=== PATIENT | male | born 1995 | race Caucasian/White ===

== ENCOUNTER 2020-02-13 13:30 | Emergency (ER) | payer MEDICAID ==
[~2020-02-13] VITALS: Ht 175.3 cm; Wt 71.0 kg
[2020-02-13] MEDS ORDERED: IBUP-1985 PO (14:37)
[2020-02-13 14:48] VITALS: BP 103/48
== END 2020-02-13 14:49 | disposition home or self-care (01) ==
LOC: ER 13:31
DX: S69.81XA Other specified injuries of right wrist, hand and finger(s), initial encounter (principal); W01.0XXA Fall on same level from slipping, tripping and stumbling without subsequent striking against object, initial encounter; Y93.67 Activity, basketball; Y92.89 Other specified places as the place of occurrence of the external cause; Y99.8 Other external cause status
CPT/HCPCS: 29125; 73090; 73110; 73130; 99284

== ENCOUNTER → 2020-03-02 | Emergency (ER) | payer MEDICAID ==
[~2020-03-02] VITALS: Ht 172.7 cm; Wt 72.7 kg
[~2020-03-02] MED LIST: IBUP-1985 PO; ketorolac trometh inj. 60 MG/2 ML VIAL IM ONE
[2020-03-02 20:25] VITALS: BP 112/63
== END | disposition home or self-care (01) ==
LOC: ER 20:22
DX: S96.911A Strain of unspecified muscle and tendon at ankle and foot level, right foot, initial encounter (principal); S86.811A Strain of other muscle(s) and tendon(s) at lower leg level, right leg, initial encounter; X50.1XXA Overexertion from prolonged static or awkward postures, initial encounter; Y93.67 Activity, basketball; Y92.89 Other specified places as the place of occurrence of the external cause; Y99.8 Other external cause status
CPT/HCPCS: 73564; 73630; 96372; 99284; J1885

== ENCOUNTER 2020-04-01 15:05 | Emergency (ER) | payer MEDICAID ==
[~2020-04-01] VITALS: Ht 175.3 cm; Wt 69.7 kg
[~2020-04-01 15:05] MED LIST changes: -ketorolac trometh inj. 60 MG/2 ML VIAL IM ONE
[2020-04-01 15:27] LABS: CLARITY,URINE CLOUDY (Clear); COLOR,URINE YELLOW (Yellow); GLUCOSE, URINE NEGATIVE (Neg); KETONES,URINE TRACE mg/dl (Neg); LEUKOCYTE ESTERASE ,URINE NEGATIVE (Neg); NITRITES, URINE NEGATIVE (Neg); OCCULT BLOOD,URINE NEGATIVE (Neg); PH,URINE 8.5 (4.8-8.0); PROTEIN,URINE NEGATIVE (Neg); UROBILINOGEN,URINE 0.2 E.U/dL (0.2-1.0)
[2020-04-01 15:28] LABS: UA COLLECTION TYPE NON-SPECIFIED
[2020-04-01 15:33] LABS: AMORPHOUS PHOSPHATES 3+; BACTERIA,URINE NONE SEEN /HPF (Neg); MUCUS STRANDS NONE SEEN /LPF (Neg); RBC,URINE NONE SEEN /HPF (0-2); SQUAMOUS EPITHELIAL CELL,UR FEW /LPF (FEW); WBC,URINE NONE SEEN /HPF (0-4)
[2020-04-01 15:44] LABS: BASOPHILS % (AUTO) 0.4 % (0-1); EOSINOPHILS % (AUTO) 0.4 % (0-6); HEMATOCRIT 44.1 % (42.0-52.0); HEMOGLOBIN 15.2 g/dl (14.0-17.9); LYMPHOCYTES # (AUTO) 1.8 X10'3 (1.1-4.8); LYMPHOCYTES % (AUTO) 19.1 % (21-51); MEAN CORPUSCULAR HEMOGLOBIN 29.9 PG (27.0-31.0); MEAN CORPUSCULAR HGB CONC 34.5 g/dL (33.0-36.5); MEAN CORPUSCULAR VOLUME 86.7 FL (78-98); MEAN PLATELET VOLUME 7.4 FL (7.4-10.4); MONOCYTES # (AUTO) 0.8 X10'3 (0-0.9); MONOCYTES % (AUTO) 8.6 % (2-12); NEUTROPHILS # (AUTO) 6.8 X10'3 (1.8-7.7); NEUTROPHILS % (AUTO) 71.5 % (42-75); PLATELET COUNT 280 X10'3 (140-440); RED BLOOD COUNT 5.09 X10'6 (4.70-6.10); RED CELL DISTRIBUTION WIDTH 12.6 % (11.5-14.5); WHITE BLOOD COUNT 9.5 X10'3 (4.5-11.0)
[2020-04-01] MEDS ORDERED: pantoprazole 40 MG vial IV ONE (15:55)
[2020-04-01] MEDS ORDERED: ondansetron/PF 4mg/2ml inj IV ONE (15:55)
[2020-04-01] MEDS ORDERED: morphine 4 MG/ML inj SYRINge IV ONE ×2 (15:55→17:10)
[2020-04-01 15:58] LABS: ALANINE AMINOTRANSFERASE 19 U/L (12-78); ALBUMIN 4.1 G/DL (3.4-5.0); ALBUMIN/GLOBULIN RATIO 1.2 (1.1-1.5); ALKALINE PHOSPHATASE 121 IU/L (46-116); ANION GAP 9 (8-16); ASPARTATE AMINO TRANSFERASE 15 U/L (10-37); BILIRUBIN,TOTAL 1.2 MG/DL (0.1-1.0); BLOOD UREA NITROGEN 10 MG/DL (7-18); BUN/CREATININE RATIO 10.9 (5.4-32.0); CALCIUM 9.8 MG/DL (8.5-10.1); CHLORIDE 106 MMOL/L (99-107); CREATININE 0.92 MG/DL (0.60-1.10); GLUCOSE 119 MG/DL (70-104); LIPASE < 50 U/L (73-393); POTASSIUM 3.6 MMOL/L (3.5-5.1); SODIUM 142 MMOL/L (135-145); TOTAL CARBON DIOXIDE 26.7 MMOL/L (24-32); TOTAL PROTEIN 7.5 G/DL (6.4-8.2); eGFR > 90 ML/MIN
[2020-04-01 18:00] VITALS: BP 116/67
[2020-04-01] MEDS ORDERED: ONDA4TAB6 PO (18:16)
[2020-04-01] MEDS ORDERED: ondansetron 4mg rapidly disintigrating tab PO ONE (18:50)
== END 2020-04-01 18:56 | disposition home or self-care (01) ==
LOC: ER 15:05
DX: R10.9 Unspecified abdominal pain (principal); R11.0 Nausea; Z72.89 Other problems related to lifestyle; Z60.2 Problems related to living alone; Z79.899 Other long term (current) drug therapy
CPT/HCPCS: 36415; 74176; 76700; 76775; 80053; 81001; 83690; 85025; 96374; 96375; 96376; 99285; C9113; J2270; J2405

== ENCOUNTER 2024-04-02 11:55 | Emergency (ER) | payer MEDICAID ==
[~2024-04-02] VITALS: Ht 172.7 cm; Wt 77.5 kg
[~2024-04-02 11:55] MED LIST changes: +ONDA4TAB6 PO
[2024-04-02 12:20] VITALS: BP 105/56; PULSE 57; RESP 16; TEMP 97.8; O2SAT 95
[2024-04-02] MEDS ORDERED: BUPR1FIL3 SL (12:51)
== END 2024-04-02 13:00 | disposition home or self-care (01) ==
LOC: ER 11:56
DX: F11.20 Opioid dependence, uncomplicated (principal); Z76.0 Encounter for issue of repeat prescription; Z72.89 Other problems related to lifestyle; Z79.899 Other long term (current) drug therapy
CPT/HCPCS: 99281

== ENCOUNTER 2024-05-03 14:56 | Emergency (ER) | payer MEDICAID ==
[~2024-05-03 14:56] MED LIST changes: +BUPR1FIL3 SL
== END 2024-05-03 15:01 | disposition left against medical advice (07) ==
LOC: ER 14:56
DX: Z76.0 Encounter for issue of repeat prescription (principal); Z53.21 Procedure and treatment not carried out due to patient leaving prior to being seen by health care provider

== ENCOUNTER 2024-11-10 13:55 | Emergency (ER) | payer MEDICAID ==
[~2024-11-10] VITALS: Ht 175.3 cm; Wt 82.3 kg
[~2024-11-10 13:55] MED LIST changes: -BUPR1FIL3 SL
[2024-11-10 14:14] VITALS: BP 110/75; PULSE 80; TEMP 97.8; O2SAT 98
[2024-11-10] MEDS ORDERED: CLIN300C71 PO (15:49)
[2024-11-10] MEDS: clindamycin 150mg capsule PO STA (16:01)
[2024-11-10] MEDS: ketorolac trometh 30MG/ML vial 30 MG/ML VIAL IM STA (16:02)
[2024-11-10 16:05] VITALS: RESP 16
== END 2024-11-10 16:08 | disposition home or self-care (01) ==
LOC: ER 13:55
DX: K04.7 Periapical abscess without sinus (principal); Z88.0 Allergy status to penicillin; Z79.1 Long term (current) use of non-steroidal anti-inflammatories (NSAID); Z79.899 Other long term (current) drug therapy
CPT/HCPCS: 96372; 99283; J1885

== ENCOUNTER 2025-03-24 17:06 | Emergency (ER) | payer MEDICAID ==
[~2025-03-24] VITALS: Ht 172.7 cm; Wt 68.2 kg
[2025-03-24 17:25] VITALS: BP 124/85; PULSE 79; RESP 16; O2SAT 95
--- NOTE | 2025-03-24 17:42 | Physician Documentation ---
History of Present Illness General Chief Complaint: Medical Clearance Stated Complaint: MEDICAL CLEARANCE Time Seen by MD: 17:30 Primary Medical Doctor: NONE History of Present Illness Initial Comments 30-year-old male with a known history of methamphetamine and fentanyl abuse reports to the emergency department seeking medical clearance for admission to [facility]. Reports has a bed awaiting him. Reports last using yesterday it methamphetamine and fentanyl. Reports numerous years of prior abuse. Denies other medical history. Medication Reconciliation Allergies: Coded Allergies: amoxicillin (Unverified Allergy, Unknown, UNK, 03/24/25) Scheduled Ibuprofen (Ibuprofen), 1 TAB PO Q8H Ondansetron Hcl (Zofran), 1 TAB PO Q6H Past Medical History Past Medical History: No Pertinent History Past Surgical History: noncontributory Alcohol Use: Sober Drug Use: none, heroin Lives with: Alone Lives In: Home Review of Systems All Other Systems at this time: Reviewed and Negative Psych: Reports: anxiety Physical Exam Physical Exam Vital Signs: RN Vital Signs have been reviewed: Yes, Temperature: 97.7, Heart Rate: 79, Respiratory Rate: 16, BP: 124/85, Pulse Oximetry: 95, Weight: 68.180 General Appearance: alert, WD/WN, mild distress Head: normal inspection Face: normal inspection Pupils/EOM/Fundus: PERRLA Respiratory: lungs clear Chest: no accessory muscle use Cardiovascular: normal peripheral pulses Back: normal inspection Extremities: normal range of motion Neurologic: oriented x4 Motor / Sensory: no motor deficit Psychiatric: normal mood/affect Skin: normal color, warm/dry Progress Results/Orders Results/Orders Vital Signs 03/24/25 17:25 Temp 97.7 Pulse 79 Resp 16 B/P (MAP) 124/85 Pulse Ox 95 Medical Decision Making Differential Diagnosis 30-year-old male seeking detox for methamphetamine and fentanyl addiction. Medical clearance provided. Medical screening examination completed. Patient was stable for safe discharge and admission to [facility]. Departure Disposition: HOME / SELF CARE / HOMELESS Impression: Primary Impression: Encounter for medical screening examination Additional Impressions: Substance abuse or dependence Substance abuse requiring inpatient treatment Condition: Stable Discharge Instructions: Medical Screening Exam Additional Instructions: YOU ARE MEDICALLY CLEARED FOR ADMISSION TO [facility] Referrals: NO PRIMARY CARE PROVIDER (PCP) Education Educated: Patient Educated regarding: diagnosis Signature Scribe Signature: . Attestation: NIRMALA OLSON March 24, 2025 17:42
[2025-03-24 18:18] VITALS: TEMP 97.7
== END 2025-03-24 18:27 | disposition home or self-care (01) ==
LOC: ER 17:07
DX: F19.10 Other psychoactive substance abuse, uncomplicated (principal); F11.90 Opioid use, unspecified, uncomplicated; Z88.1 Allergy status to other antibiotic agents; Z79.1 Long term (current) use of non-steroidal anti-inflammatories (NSAID); Z79.899 Other long term (current) drug therapy
CPT/HCPCS: 99281

== ENCOUNTER 2025-05-24 08:25 | Emergency (ER) | payer MEDICAID ==
[~2025-05-24] VITALS: Ht 172.7 cm; Wt 70.5 kg
[2025-05-24 08:29] VITALS: BP 135/85; PULSE 70; RESP 18; O2SAT 99
--- NOTE | 2025-05-24 09:38 | Physician Documentation ---
History of Present Illness ~ Chief Complaint: Medical Clearance Stated Complaint: DETOX MED CLEARANCE Time Seen by MD: 08:59 Primary Medical Doctor: NONE HPI This is a 30-year-old male who presents requesting medical clearance to enter rehab program for fentanyl abuse, patient reports he feels otherwise well. Patient reports history of mat therapy with methadone however he has been off med therapy for some time with like to be considered for Suboxone therapy. Patient reports last use of fentanyl approximately 48 hours prior. Tetanus within 5 years?: Yes Medication Reconciliation Allergies: Coded Allergies: amoxicillin (Unverified Allergy, Unknown, UNK, 03/24/25) Scheduled Ibuprofen (Ibuprofen), 1 TAB PO Q8H Ondansetron Hcl (Zofran), 1 TAB PO Q6H Past Medical History Past Medical History: No Pertinent History Past Surgical History: noncontributory Alcohol Use: Sober Drug Use: none, heroin Lives with: Alone Lives In: Home Review of Systems ROS As stated above in the HPI, otherwise all systems are reviewed and negative. Physical Exam Vital Signs: Temperature: 98.5, Source: Temporal, Heart Rate: 70, Respiratory Rate: 18, BP: 135/85, Pulse Oximetry: 99, Weight: 70.450 Oxygen Flow Rate: 0 Physical Exam VITALS: Reviewed and as above. GENERAL: Alert, nontoxic appearing, no apparent distress. RESPIRATORY: No increased work of breathing, no respiratory distress, speaking in full clear sentences Progress Results/Orders Results/Orders Completed Orders - JUDY VELA SETTER UP Buprenorphine/Naloxone Sl Film (Suboxone (05/24/25 09:35) Ondansetron Disint. Tablet (Zofran Odt T (05/24/25 09:35) Vital Signs 05/24/25 05/24/25 08:29 11:29 Temp 98.5 98.5 Pulse 70 Resp 18 B/P (MAP) 135/85 Pulse Ox 99 O2 Flow Rate 0 Medical Decision Making Findings This 30-year-old male presented requesting medical clearance to enter a rehab program, substance use navigator was contacted to provide patient resources, since use navigator had a prolonged conversation with the patient and with shared decision-making between myself, the substance use navigator, and the patient patient will be started on Suboxone, due to risk of initiating withdrawal symptoms patient provided 1st dose of Suboxone with plan to monitor for at least 1 hour for signs of withdrawal symptoms. I completed a brief history and physical with substance use navigator in the room with plan to return for full physical exam after substance use navigator completed their patient evaluation. Patient was hemodynamically stable and reporting no symptoms however a full physical exam was not completed. Patient appears to have eloped after reporting he needed to retrieve a phone number from his vehicle as part of becoming established with a rehab program. As patient has eloped I am unable to provide further prescription for Suboxone and unable to provide a medical clearance for him to start his rehab program. Differential Dx:Considerations: Include: Intoxication-Alcohol, Intoxication- Other drug, Personality disorder, Substance abuse disorder, Acute delirium, Alcohol withdrawl syndrom, Medically stable Departure Disposition: 07 LEFT AWOL/ELOPED Impression: Primary Impression: Opiate dependence Qualified Codes: F11.29 - Opioid dependence with unspecified opioid-induced disorder Additional Impression: General medical exam Condition: Guarded Referrals: NO PRIMARY CARE PROVIDER (PCP) Signature Scribe Signature: No scribe Attestation: The note accurately reflects work and decisions made by me.ALLY Fairchild 05/24/25 22:15 JUDY VELA May 24, 2025 09:38
[2025-05-24] MEDS: buprenorphine/naloxone 8MG-2MG SUBlingual film SL ONE (09:46)
[2025-05-24] MEDS: ondansetron 4mg rapidly disintigrating tab PO ONE (09:46)
[2025-05-24 11:29] VITALS: TEMP 98.5
== END 2025-05-24 11:30 | disposition left against medical advice (07) ==
LOC: ER 08:26
DX: F11.20 Opioid dependence, uncomplicated (principal); Z88.0 Allergy status to penicillin
CPT/HCPCS: 99283

== ENCOUNTER 2025-05-30 10:05 | Emergency (ER) | payer MEDICAID ==
[~2025-05-30] VITALS: Ht 172.7 cm; Wt 70.1 kg
[2025-05-30 10:16] VITALS: TEMP 97.9
[2025-05-30] MEDS ORDERED: BUPR1FIL3 SL (10:24)
[2025-05-30] MEDS ORDERED: ONDA-245 PO (10:24)
[2025-05-30] MEDS ORDERED: NALO4SPR BOTHNARES (10:24)
--- NOTE | 2025-05-30 10:26 | Physician Documentation ---
History of Present Illness ~ Chief Complaint: Medical Clearance Stated Complaint: MED CLEARANCE MED REQUEST Time Seen by MD: 10:07 Primary Medical Doctor: NONE HPI This 30-year-old male presents to the emergency department requesting help with quitting use of opioids. He admits to use of fentanyl, with most recent use last night. He plans to enter a program soon. He has used Suboxone in the past with good results. Tetanus within 5 years?: Yes Medication Reconciliation Allergies: Coded Allergies: amoxicillin (Unverified Allergy, Unknown, UNK, 03/24/25) Scheduled Ibuprofen (Ibuprofen), 1 TAB PO Q8H Ondansetron Hcl (Zofran), 1 TAB PO Q6H Past Medical History Past Medical History: No Pertinent History Past Surgical History: noncontributory Alcohol Use: Sober Drug Use: none, heroin Lives with: Alone Lives In: Home Review of Systems ROS As stated above in the HPI, otherwise all systems are reviewed and negative. Physical Exam Vital Signs: Temperature: 97.9, Source: Temporal, Heart Rate: 89, Respiratory Rate: 18, BP: 115/79, Pulse Oximetry: 99, Weight: 70.100 Oxygen Flow Rate: 0 Physical Exam General: Alert, no apparent distress. Neck: Full range of motion. Respiratory: Lungs clear, no respiratory distress. Chest: No accessory muscle use. Cardiovascular: Regular rate and rhythm, no murmurs. Gastrointestinal: Soft, nontender, nondistended. Bowels sounds present. Extremities: Normal range of motion, no deformity. Neurologic: Oriented x4. Psychiatric: Normal mood and affect. Skin: Normal color, warm and dry. No edema, no ecchymosis. Progress Results/Orders Results/Orders Vital Signs 05/30/25 10:16 Temp 97.9 Pulse 89 Resp 18 B/P (MAP) 115/79 Pulse Ox 99 O2 Flow Rate 0 Medical Decision Making Differential Dx:Considerations: Include: Intoxication-Alcohol, Intoxication- Other drug, Personality disorder, Substance abuse disorder, Acute delirium, Alcohol withdrawl syndrom, Medically stable Differential Diagnosis Long discussion with the patient about the importance of waiting until he is in significant withdrawal prior to starting Suboxone. He reports that he has experienced precipitated withdrawal previously, and is well aware of the need to wair for withdrawal symptoms prior to starting the Suboxone. Departure Time of Disposition: 10:22 Disposition: 01 HOME / SELF CARE / HOMELESS Impression: Primary Impression: General medical exam Additional Impression: Opiate dependence Condition: Stable Discharge Instructions: Medical Screening Exam, Opioid Use Disorder, Opioid Withdrawal, Opioid Withdrawal Treatment Additional Instructions: Do not start the suboxone until you are experiencing significant withdrawal symptoms. Keep the Narcan on you in case a friend is over-dosing or someone can help you if you over-dose Good luck with your plan to enter rehab. Referrals: NO PRIMARY CARE PROVIDER (PCP) Prescriptions Ondansetron 8mg ODT (Ondansetron Odt) 8 Mg Tab.rapdis 1 TAB PO TID PRN for nausea/vomiting, #10 TAB Prov: KIKO SUN NP 05/30/25 Naloxone HCl (Narcan) 4 Mg/Actuation [place] 1 SPRAYS BOTHNARES ONCE for 14 Days, #1 EA 0 Refills Prov: KIKO SUN NP 05/30/25 Buprenorphine Hcl/Naloxone Hcl (Suboxone 8 Mg-2 Mg Sl Film) 8 Mg-2 Mg Film 1 STRIP SL BID for 10 Days, #20 STRIP Prov: KIKO SUN NP 05/30/25 Education Educated: Patient Educated regarding: diagnosis, treatment, prognosis, need for follow up Signature Scribe Signature: x Attestation: The note accurately reflects work and decisions made by me.Kiko Waller NP 05/30/25 10:21 KIKO SUN NP May 30, 2025 10:25
[2025-05-30 12:02] VITALS: BP 119/82; PULSE 74; RESP 15; O2SAT 100
== END 2025-05-30 12:09 | disposition home or self-care (01) ==
LOC: ER 10:06
DX: F11.20 Opioid dependence, uncomplicated (principal); Z88.1 Allergy status to other antibiotic agents; Z79.899 Other long term (current) drug therapy; Z60.2 Problems related to living alone
CPT/HCPCS: 99281